=== PATIENT | female | born 1995 | race Two or more races ===

== ENCOUNTER 2021-10-19 10:59 | Emergency (ER) | payer OTHER ==
[~2021-10-19] VITALS: Ht 165.1 cm; Wt 64.0 kg
== END 2021-10-19 13:55 | disposition home or self-care (01) ==
LOC: ER 10:59
DX: N92.6 Irregular menstruation, unspecified (principal)

== ENCOUNTER 2022-01-20 15:55 | Emergency (ER) | payer OTHER ==
[~2022-01-20] VITALS: Ht 165.1 cm; Wt 64.4 kg
[2022-01-20] MEDS ORDERED: NABUMETONE750 MG PO (16:21)
[2022-01-20] MEDS ORDERED: NORFLEX100MG PO (16:21)
== END 2022-01-20 16:57 | disposition home or self-care (01) ==
LOC: ER 15:55
DX: M54.50 Low back pain, unspecified (principal); Z91.013 Allergy to seafood

== ENCOUNTER 2022-03-10 17:34 | Emergency (ER) | payer OTHER ==
[~2022-03-10] VITALS: Ht 165.1 cm; Wt 66.2 kg
[~2022-03-10 17:34] MED LIST: NABUMETONE750 MG PO; NORFLEX100MG PO
== END 2022-03-10 22:27 | disposition home or self-care (01) ==
LOC: ER 17:34
DX: R10.2 Pelvic and perineal pain (principal); N92.6 Irregular menstruation, unspecified; Z20.822 Contact with and (suspected) exposure to COVID-19; Z91.013 Allergy to seafood; D27.0 Benign neoplasm of right ovary

== ENCOUNTER 2022-10-13 12:12 | Emergency (ER) | payer OTHER ==
[~2022-10-13] VITALS: Ht 170.2 cm; Wt 68.0 kg
== END 2022-10-13 20:54 | disposition home or self-care (01) ==
LOC: ER 12:12
DX: K52.9 Noninfective gastroenteritis and colitis, unspecified (principal); Z91.013 Allergy to seafood